=== PATIENT | male | born 1965 | race African-American/Black ===

== ENCOUNTER 2018-01-22 17:51 | Emergency (ER) | payer MEDICARE, MEDICAID ==
[~2018-01-22] VITALS: Ht 188 cm; Wt 95.0 kg
[~2018-01-22 17:51] MED LIST: AMLO10TA4 PO; AMLO2.5T2 PO; ARIP10TA15 PO; CHLO25TA2 PO; DIPH-915 PO; KEN0.1O TP; LISI40TA4 PO; PRAZ1CAP5 PO; PRAZ5CAP2 PO
[2018-01-22 18:44] LABS: BASOPHILS % (AUTO) 0.8 % (0-1); EOSINOPHILS # (AUTO) 0.1 X10'3 (0-0.9); EOSINOPHILS % (AUTO) 1.6 % (0-6); HEMATOCRIT 46.2 % (42.0-52.0); HEMOGLOBIN 15.3 g/dl (14.0-17.9); LYMPHOCYTES # (AUTO) 1.4 X10'3 (1.1-4.8); LYMPHOCYTES % (AUTO) 38.3 % (21-51); MEAN CORPUSCULAR HEMOGLOBIN 29.8 PG (27.0-31.0); MEAN CORPUSCULAR HGB CONC 33.2 % (33.0-36.5); MEAN CORPUSCULAR VOLUME 89.8 FL (78-98); MEAN PLATELET VOLUME 8.1 FL (7.4-10.4); MONOCYTES # (AUTO) 0.3 X10'3 (0-0.9); MONOCYTES % (AUTO) 7.5 % (2-12); NEUTROPHILS # (AUTO) 1.7 X10'3 (1.8-7.7); NEUTROPHILS % (AUTO) 51.8 % (42-75); PLATELET COUNT 287 X10'3 (140-440); RED BLOOD COUNT 5.14 X10'6 (4.70-6.10); RED CELL DISTRIBUTION WIDTH 13.3 % (11.5-14.5); WHITE BLOOD COUNT 3.5 X10'3 (4.5-11.0)
[2018-01-22 18:50] LABS: PARTIAL THROMBOPLASTIN TIME 27 SECONDS (22-32); PROTHROMBIN TIME 10.7 SECONDS (9.0-12.0)
[2018-01-22 18:51] LABS: ALANINE AMINOTRANSFERASE 28 U/L (12-78); ALBUMIN 3.9 G/DL (3.4-5.0); ALBUMIN/GLOBULIN RATIO 1.1 (1.1-1.5); ALKALINE PHOSPHATASE 51 IU/L (46-116); ANION GAP 6 (8-16); ASPARTATE AMINO TRANSFERASE 17 U/L (10-37); BILIRUBIN,TOTAL 0.5 MG/DL (0.1-1.0); BLOOD UREA NITROGEN 13 MG/DL (7-18); BUN/CREATININE RATIO 7.9 (5.4-32.0); CALCIUM 8.9 MG/DL (8.5-10.1); CHLORIDE 101 MMOL/L (99-107); CREATININE 1.64 MG/DL (0.60-1.10); GLUCOSE 117 MG/DL (70-104); POTASSIUM 3.3 MMOL/L (3.5-5.1); SODIUM 140 MMOL/L (135-145); TOTAL CARBON DIOXIDE 32.8 MMOL/L (24-32); TOTAL PROTEIN 7.5 G/DL (6.4-8.2); eGFR 54 ML/MIN
[2018-01-22] MEDS ORDERED: magnesium oxide 400mg tablet PO ONE (19:25)
[2018-01-22] MEDS ORDERED: acetaminophen 325mg tablet PO ONE (19:25)
[2018-01-22] MEDS ORDERED: potassium Cl 20 mEq SR tablet PO ONE (19:25)
[2018-01-22] MEDS ORDERED: normal saline 1000ML IV soln IVB ONE (19:25)
[2018-01-22 19:36] LABS: MAGNESIUM 2.2 MG/DL (1.5-2.4)
[2018-01-22 21:09] VITALS: BP 120/72
[2018-01-23] MEDS ORDERED: LEVO500T89 PO (09:35)
[2018-01-23] MEDS ORDERED: ALBU6.7H INH (09:35)
== END 2018-01-22 21:16 | disposition home or self-care (01) ==
LOC: ER 17:51
DX: R07.89 Other chest pain (principal); I10 Essential (primary) hypertension; Z79.899 Other long term (current) drug therapy
CPT/HCPCS: 36415; 71045; 80053; 83735; 84484; 85025; 85610; 85730; 93005; 99285

== ENCOUNTER 2018-01-23 09:18 | Emergency (ER) | payer MEDICARE, MEDICAID ==
[~2018-01-23] VITALS: Ht 188 cm; Wt 95.5 kg
[2018-01-23 09:27] VITALS: BP 129/81
[2018-01-23] MEDS ORDERED: LEVO500T89 PO (09:35)
[2018-01-23] MEDS ORDERED: ALBU6.7H INH (09:35)
== END 2018-01-23 09:41 | disposition home or self-care (01) ==
LOC: ER 09:19
DX: J18.1 Lobar pneumonia, unspecified organism (principal); I10 Essential (primary) hypertension
CPT/HCPCS: 99283

== ENCOUNTER 2018-07-24 16:00 | Inpatient (IN) | payer MEDICARE, MEDICAID | END 2018-07-29 12:10 | disposition still patient (30) | LOC: ADULT MH 16:00 | DX: F32.3 Major depressive disorder, single episode, severe with psychotic features (principal); I10 Essential (primary) hypertension ==

== ENCOUNTER 2021-07-01 18:11 | Emergency (ER) | payer MEDICARE, MEDICAID ==
[~2021-07-01] VITALS: Ht 182.9 cm; Wt 81.8 kg
[~2021-07-01 18:11] MED LIST changes: -AMLO2.5T2 PO; -ARIP10TA15 PO; +ARIP15TA3 PO; +ARIP5TAB14 PO; -DIPH-915 PO; -KEN0.1O TP; +LISI40TA13 PO; -LISI40TA4 PO; -PRAZ1CAP5 PO; -PRAZ5CAP2 PO; +TRAZ-251 PO
[2021-07-01] MEDS ORDERED: TETanus/Pertussis (Acell)/Diphther VAC/PF (Tdap-Adult) 0.5ml syringe IMVAC ONE (18:45)
[2021-07-01] MEDS ORDERED: rabies vaccine (PCEC)/PF 2.5 unit kit IMVAC ONE (18:45)
[2021-07-01] MEDS ORDERED: rabies immune globulin/PF 150 unit/ml inj IMVAC ONE (18:45)
[2021-07-01] MEDS ORDERED: AMOX-580 PO (19:00)
[2021-07-01] MEDS ORDERED: HYDR-3965 PO ×2 (19:00→19:02)
--- NOTE | 2021-07-01 20:09 | NUR ---
patient states that he as bitten by a dog in the park , both him and the person whose dog it was were both homeless, dog has a unknown vaccination status at this time two puncture wounds noted on the right posterior calf and the, left medial calf patient appears to be developmental delayed at this time ,
--- NOTE | 2021-07-01 20:17 | NUR ---
mirtha called report was made [id number]
--- NOTE | 2021-07-01 20:34 | NUR ---
vaccination fact sheet given to patient
[2021-07-01 20:35] VITALS: BP 132/80
== END 2021-07-01 20:41 | disposition home or self-care (01) ==
LOC: ER 18:11
DX: S81.832A Puncture wound without foreign body, left lower leg, initial encounter (principal); S81.831A Puncture wound without foreign body, right lower leg, initial encounter; I10 Essential (primary) hypertension; Z79.899 Other long term (current) drug therapy; W54.0XXA Bitten by dog, initial encounter; Y93.89 Activity, other specified; Y92.89 Other specified places as the place of occurrence of the external cause; Y99.8 Other external cause status
CPT/HCPCS: 90376; 90471; 90472; 90675; 90715; 96372; 99284

== ENCOUNTER 2021-08-04 08:59 | Emergency (ER) | payer MEDICARE, MEDICAID ==
[~2021-08-04] VITALS: Ht 182.9 cm; Wt 77.3 kg
[2021-08-04 09:11] VITALS: BP 148/106
== END 2021-08-04 11:49 | disposition home or self-care (01) ==
LOC: ER 08:59
DX: M79.604 Pain in right leg (principal); I10 Essential (primary) hypertension; Z59.00 Homelessness unspecified; Z79.899 Other long term (current) drug therapy
CPT/HCPCS: 73502; 93971; 99284

== ENCOUNTER 2023-08-30 23:03 | Emergency (ER) | payer MEDICARE, MEDICAID ==
[~2023-08-30] VITALS: Ht 182.9 cm; Wt 104.5 kg
[~2023-08-30 23:03] MED LIST changes: +ARIP5TAB12 PO; -ARIP5TAB14 PO
[2023-08-30 23:34] VITALS: TEMP 97.9
[2023-08-31 01:17] LABS: BASOPHILS % (AUTO) 0.9 % (0-1); EOSINOPHILS # (AUTO) 0.1 X10'3 (0-0.9); EOSINOPHILS % (AUTO) 2.2 % (0-6); HEMATOCRIT 44.3 % (42.0-52.0); HEMOGLOBIN 14.7 g/dl (14.0-17.9); LYMPHOCYTES # (AUTO) 1.5 X10'3 (1.1-4.8); LYMPHOCYTES % (AUTO) 35.1 % (21-51); MEAN CORPUSCULAR HEMOGLOBIN 29.4 PG (27.0-31.0); MEAN CORPUSCULAR HGB CONC 33.3 g/dL (33.0-36.5); MEAN CORPUSCULAR VOLUME 88.4 FL (78-98); MEAN PLATELET VOLUME 8.1 FL (7.4-10.4); MONOCYTES # (AUTO) 0.3 X10'3 (0-0.9); MONOCYTES % (AUTO) 7.8 % (2-12); NEUTROPHILS # (AUTO) 2.3 X10'3 (1.8-7.7); PLATELET COUNT 248 X10'3 (140-440); RED BLOOD COUNT 5.01 X10'6 (4.70-6.10); RED CELL DISTRIBUTION WIDTH 15.1 % (11.5-14.5); WHITE BLOOD COUNT 4.3 X10'3 (4.5-11.0)
[2023-08-31 01:20] LABS: PROTHROMBIN TIME 10.8 SECONDS (9.0-12.0)
[2023-08-31 01:27] LABS: URINE AMPHETAMINE SCREEN NEGATIVE (Neg); URINE BARBITUATE SCREEN NEGATIVE (Neg); URINE BENZODIAZEPINES SCREEN NEGATIVE (Neg); URINE CANNABINOID SCREEN NEGATIVE (Neg); URINE COCAINE SCREEN NEGATIVE (Neg); URINE METHADONE SCREEN NEGATIVE (Neg); URINE OPIATE SCREEN NEGATIVE (Neg); URINE PHENCYCLIDINE SCREEN NEGATIVE (Neg)
[2023-08-31 01:30] LABS: ALBUMIN 4.1 G/DL (3.4-5.0); ANION GAP 11 (8-16); BLOOD UREA NITROGEN 9 MG/DL (7-18); BUN/CREATININE RATIO 6.4 (10.0-20.0); CHLORIDE 100 MMOL/L (99-107); GLUCOSE 152 MG/DL (70-104); POTASSIUM 3.5 MMOL/L (3.5-5.1); PRO BRAIN NATRIURETIC PEPTIDE < 30 PG/ML (0-125); SODIUM 136 MMOL/L (135-145); TOTAL CARBON DIOXIDE 25.5 MMOL/L (24-32); eCRCL 65 ML/MIN; eGFR 63 ML/MIN
[2023-08-31 02:19] LABS: HEMOGLOBIN A1C 6.2 % (4.5-6.2)
[2023-08-31] MEDS: LORazepam 1 MG tablet PO ONE (03:04)
[2023-08-31] MEDS: normal saline 1000ML IV soln IVB ONE (03:05)
[2023-08-31 04:32] VITALS: BP 159/98; PULSE 89; RESP 16; O2SAT 95
== END 2023-08-31 04:44 | disposition home or self-care (01) ==
LOC: ER 23:03
DX: R07.89 Other chest pain (principal); R68.2 Dry mouth, unspecified; I10 Essential (primary) hypertension; Z88.8 Allergy status to other drugs, medicaments and biological substances; Z79.899 Other long term (current) drug therapy
CPT/HCPCS: 36415; 71045; 80048; 80305; 83036; 83880; 84484; 85025; 85610; 93005; 99285; J7030; 96360; 99284

== ENCOUNTER 2024-06-09 23:02 | Emergency (ER) | payer MEDICARE, MEDICAID ==
[~2024-06-09] VITALS: Ht 182.9 cm; Wt 106.5 kg
[2024-06-09 23:10] VITALS: BP 139/85; PULSE 120; RESP 18; TEMP 98.2; O2SAT 96
[2024-06-10] MEDS ORDERED: ACET-1025 PO (01:01)
[2024-06-10] MEDS: acetaminophen 325mg tablet PO ONE (01:05)
[2024-06-10] MEDS: ibuprofen tablet 400 MG TABLET PO ONE (01:05)
[2024-06-10 01:46] LABS: STREP A SCREEN NEGATIVE (Neg)
== END 2024-06-10 01:13 | disposition home or self-care (01) ==
LOC: ER 23:03
DX: J02.9 Acute pharyngitis, unspecified (principal); I10 Essential (primary) hypertension; Z88.8 Allergy status to other drugs, medicaments and biological substances
CPT/HCPCS: 87081; 87880; 99283

== ENCOUNTER 2025-02-18 17:21 | Emergency (ER) | payer MEDICARE, MEDICAID ==
[~2025-02-18] VITALS: Ht 185.4 cm; Wt 109.7 kg
[~2025-02-18 17:21] MED LIST changes: +AMLO-912 PO; -AMLO10TA4 PO; -LISI40TA13 PO; +LISI40TA20 PO
--- NOTE | 2025-02-18 17:27 | ELECTROCARDIOGRAPH REPORT ---
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 Jasen Posey Measurements Intervals [place] Rate: 81 P: 61 [place]: 168 QRS: 52 QRSD: 99 T: 41 QT: 385 QTc: 447 Interpretive Statements Sinus rhythm Inferior infarct, old Baseline wander in lead(s) II,V2,V3 Electronically Signed On 02-19-2025 18:48:[address] Jasen Posey Please click the below link to view image of tracing.
--- NOTE | 2025-02-18 17:44 | RADIOLOGY REPORT ---
CHEST RADIOGRAPH Indication: CP Technique: Single frontal view of the chest was obtained COMPARISON: DI CHEST,SINGLE VIEW on DOS: 08/31/23 FINDINGS: Lines and Tubes: None Lungs: Low lung volumes. Increased interstitial prominence. This may represent pulmonary vascular congestion and/or viral pneumonia. Pleura: No effusion.No pneumothorax. Cardiomediastinal contours: Cardiomegaly. Bones: Unremarkable IMPRESSION: Cardiomegaly. Low lung volumes. Increased interstitial prominence. This may represent pulmonary vascular congestion and/or viral pneumonia.
[2025-02-18 17:54] LABS: MEAN PLATELET VOLUME 8.1 FL (7.4-10.4); RED CELL DISTRIBUTION WIDTH 14.6 % (11.5-14.5)
[2025-02-18 18:18] LABS: CREATININE 1.46 MG/DL (0.60-1.10); PRO BRAIN NATRIURETIC PEPTIDE < 30 PG/ML (0-125); TOTAL CARBON DIOXIDE 31.1 MMOL/L (24-32); eCRCL 63 ML/MIN; eGFR 60 ML/MIN
[2025-02-18 20:59] VITALS: BP 116/91; PULSE 87; RESP 16; TEMP 98.7; O2SAT 97
--- NOTE | 2025-02-18 21:18 | Physician Documentation ---
History of Present Illness ~ Chief Complaint: Chest Pain Stated Complaint: CHEST PAIN Time Seen by MD: 21:07 [facility] Mode of Arrival: POV HPI Patient presents to the emergency room with intermittent left-sided chest pain. No relieving or exacerbating factors. That has not walking or deep inspirations or palpations. Endorses some degree of shortness of breath intermittently. That has denies one-sided leg pain or swelling. No current pain Medication Reconciliation Allergies: Coded Allergies: benztropine (Verified Allergy, Unknown, 08/30/23) Scheduled Amlodipine Besylate (Norvasc), 1 TAB PO DAILY Aripiprazole* (Abilify*), 5 MG PO DAILY, (Reported) Aripiprazole* (Abilify*), 1 TAB PO HS, (Reported) Chlorthalidone (Chlorthalidone), 0.5 TAB PO DAILY, (Reported) Lisinopril* (Lisinopril*), 1 TAB PO DAILY, (Reported) Trazodone HCl (Trazodone HCl), 1 TAB PO HS, (Reported) Past Medical History Past Medical History: Hypertension, *PSYCH* Past Surgical History: noncontributory Drug Use: none Lives In: Homeless Occupation: disabled Review of Systems ROS All review of systems negative except as per HPI Physical Exam Vital Signs: Temperature: 98.7, Source: Oral, Heart Rate: 87, Respiratory Rate: 16, BP: 116/91, Pulse Oximetry: 97, Weight: 109.700 Oxygen Flow Rate: 0 Physical Exam General: Patient is awake, alert, oriented in no acute distress Head: Normocephalic and atraumatic. Eyes: Conjunctival normal. EOMI. PERRL. ENT: Mucous membranes moist. Neck: Supple, trachea is midline. Chest: Clear to auscultation bilaterally without rales, rhonchi, or wheezes. There is no accessory muscle use or retractions. Cardiac: RRR without murmurs, gallops, or rubs. Abd: Soft, nondistended, nontender, with normoactive bowel sounds. No guarding, rebound, or rigidity. Extremities: Normal strength. Normal range of motion. No deformities or edema. No calf tenderness to palpation Progress Results/Orders Results/Orders Vital Signs 02/18/25 02/18/25 02/18/25 02/18/25 17:30 20:17 20:17 20:59 Temp 98.7 98.7 98.7 Pulse 85 85 87 Resp 16 16 16 B/P (MAP) 169/99 155/112 (126) 116/91 (99) Pulse Ox 96 96 97 O2 Flow Rate 0 0 0 Laboratory Tests Test 02/18/25 17:45 02/18/25 20:44 White Blood Count 3.3 L Red Blood Count 5.20 Hemoglobin 15.6 Hematocrit 46.5 Mean Corpuscular Volume 89.4 Mean Corpuscular Hemoglobin 30.0 Mean Corpuscular Hemoglobin Concent 33.6 Red Cell Distribution Width 14.6 H Platelet Count 263 Mean Platelet Volume 8.1 Neutrophils (%) (Auto) 40.2 L Lymphocytes (%) (Auto) 47.1 Monocytes (%) (Auto) 7.9 Eosinophils (%) (Auto) 3.7 Basophils (%) (Auto) 1.1 H Neutrophils # (Auto) 1.3 L Lymphocytes # (Auto) 1.5 Monocytes # (Auto) 0.3 Eosinophils # (Auto) 0.1 Basophils # (Auto) 0.0 CBC Comment Sodium Level 140 Potassium Level 3.4 L Chloride Level 105 Carbon Dioxide Level 31.1 Anion Gap 4 L Blood Urea Nitrogen 7 Creatinine 1.46 H Estimated GFR/1.73 m2 60 BUN/Creatinine Ratio 4.8 L Glucose Level 103 Calcium Level 8.8 Troponin I High Sensitivity 7 7 Pro-B-Type Natriuretic Peptide < 30 Albumin 4.4 Chemistry Comments Troponin I High Sens Percent Delta 0 Troponin I Hi Sens Absolute Change 0 EKG/XRAY/CT/US/VASC/MRI EKG : Additional Comment EKG interpreted by myself shows time of 1725, rate 81, sinus rhythm, normal axis, no ST changes Chest X-Ray : Additional Comments Exam: CHEST,SINGLE VIEW CHEST RADIOGRAPH Indication: CP Technique: Single frontal view of the chest was obtained COMPARISON: DI CHEST,SINGLE VIEW on DOS: 08/31/23 FINDINGS: Lines and Tubes: None Lungs: Low lung volumes. Increased interstitial prominence. This may represent pulmonary vascular congestion and/or viral pneumonia. Pleura: No effusion.No pneumothorax. Cardiomediastinal contours: Cardiomegaly. Bones: Unremarkable IMPRESSION: Cardiomegaly. Low lung volumes. Increased interstitial prominence. This may represent pulmonary vascular congestion and/or viral pneumonia. Medical Decision Making Additional information obtaine: old records Findings Patient presents to the emergency room with left-sided chest pain as per HPI. Differentials include but are not limited to ACS, aortic pathology, pulmonary embolism, pneumothorax, musculoskeletal pain therefore emergent labs and imaging indicated. Labs and imaging reassuring. Patient's heart score is reassuring. Unknown cause for his pain. No tachycardia, no hypoxia no one sided leg symptoms and he had not feel patient requires investigation into possible pulmonary embolism. Heart Score: 3 Differential Dx:Considerations: Include: angina, aortic dissection, chest wall pain, cholelithiasis, CHF, costochondritis, esophageal reflux/spasm, gastritis, herpes zoster, myocardial infarction, pericarditis, pleuritis, pancreatitis, pneumonia, pneumothorax, pulmonary embolus, other Departure Disposition: 01 HOME / SELF CARE / HOMELESS Impression: Primary Impression: Chest pain Condition: Stable Discharge Instructions: Nonspecific Chest Pain, Adult Additional Instructions: Follow up with your primary care provider for evaluation of chest pain. Referrals: NO PRIMARY CARE PROVIDER (PCP) Signature Scribe Signature: No scribe Attestation: The note accurately reflects work and decisions made by me.Ayo Martinez MD 02/18/25 21:18 AYO MARTINEZ MD Feb 18, 2025 21:18
== END 2025-02-18 21:27 | disposition home or self-care (01) ==
LOC: ER 17:22
DX: R07.9 Chest pain, unspecified (principal); I10 Essential (primary) hypertension; Z88.8 Allergy status to other drugs, medicaments and biological substances; Z79.899 Other long term (current) drug therapy; Z59.00 Homelessness unspecified
CPT/HCPCS: 36415; 71045; 80048; 83880; 84484; 85025; 93005; 99285

== ENCOUNTER 2025-03-15 20:16 | Emergency (ER) | payer MEDICARE, MEDICAID ==
[~2025-03-15] VITALS: Ht 182.9 cm; Wt 109.0 kg
--- NOTE | 2025-03-15 20:22 | ELECTROCARDIOGRAPH REPORT ---
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 Bandar Wetzel Measurements Intervals [place] Rate: 83 P: 57 [place]: 167 QRS: 12 QRSD: 111 T: 36 QT: 392 QTc: 461 Interpretive Statements Sinus rhythm Left ventricular hypertrophy Abnormal T, consider ischemia, anterior leads Electronically Signed On 03-15-2025 21:18:[address] Bandar Wetzel Please click the below link to view image of tracing.
--- NOTE | 2025-03-15 20:51 | RADIOLOGY REPORT ---
CHEST RADIOGRAPH Indication: CP Technique: Single frontal view of the chest was obtained COMPARISON: DI CHEST,SINGLE VIEW on DOS: 02/18/25, DI CHEST,SINGLE VIEW on DOS: 08/31/23 FINDINGS: Lungs and pleural spaces are clear. Cardiac silhouette and hector are within normal limits. Bones and soft tissues demonstrate no significant abnormality. IMPRESSION: No acute disease.
--- NOTE | 2025-03-15 20:57 | Physician Documentation ---
History of Present Illness ~ Chief Complaint: Chest Pain Stated Complaint: CP Time Seen by MD: 20:41 Primary Medical Doctor: DUYEN Mode of Arrival: POV HPI 59-year-old male with a history of being developmentally delayed presents today with a complaint of acute chest pain x2 days accompanying shortness a breath. According to his facility he has recently had an elevation in his blood pressure medication in addition to having concerns over cardiomegaly. Patient is awaiting to see a lens marker's for evaluation of potential congestive heart failure. He has any nausea vomiting or radiating chest pain. States the pain is primarily midsternal Guarding his symptoms he denies any exacerbating or alleviating factors however based on the patient's cognitive deficits it is difficult to get an accurate history Day of Onset: Mar 15, 2025 Medication Reconciliation Allergies: Coded Allergies: benztropine (Verified Allergy, Unknown, 03/15/25) Scheduled Amlodipine Besylate (Norvasc), 1 TAB PO DAILY Aripiprazole* (Abilify*), 5 MG PO DAILY, (Reported) Aripiprazole* (Abilify*), 1 TAB PO HS, (Reported) Chlorthalidone (Chlorthalidone), 0.5 TAB PO DAILY, (Reported) Lisinopril* (Lisinopril*), 1 TAB PO DAILY, (Reported) Trazodone HCl (Trazodone HCl), 1 TAB PO HS, (Reported) Past Medical History Past Medical History: Hypertension, *PSYCH* Past Surgical History: noncontributory Drug Use: none Lives In: Homeless Occupation: disabled Review of Systems All Other Systems at this time: Reviewed and Negative ROS As stated above in the HPI, otherwise all systems are reviewed and negative. Physical Exam Vital Signs: Temperature: 97.1, Source: Temporal, Heart Rate: 79, Respiratory Rate: 31, BP: 169/98, Pulse Oximetry: 96, Weight: 109.000 Oxygen Flow Rate: 0 Physical Exam General: Alert, no apparent distress. Respiratory: Lungs clear, no respiratory distress. Chest: No accessory muscle use. Cardiovascular: Regular rate and rhythm, no murmurs. Gastrointestinal: Soft, nontender, nondistended. Bowels sounds present. Extremities: Normal range of motion, no deformity. Neurologic: Oriented x4. Psychiatric: Normal mood and affect. Skin: Normal color, warm and dry. No edema, no ecchymosis. Progress Results/Orders Results/Orders Completed Orders - JEFF BRITO HIDES INSPECTOR Cbc/Diff (03/15/25 20:57) Ibuprofen Tablet (Motrin Tablet) (03/15/25 21:25) Lorazepam Tablet (Ativan Tablet) (03/15/25 21:35) Medications Received in ER Medications (Trade) Dose Ordered Sig/Arcenio Route PRN Reason Start Time Stop Time Status Last Admin Dose Admin (Motrin tablet) 400 mg ONCE ONCE PO 03/15/25 21:25 03/15/25 21:26 DC 03/15/25 21:30 400 MG (Ativan tablet) 1 mg ONCE ONCE PO 03/15/25 21:35 03/15/25 21:36 DC 03/15/25 21:37 1 MG Vital Signs 03/15/25 03/15/25 03/15/25 03/15/25 20:23 20:40 21:30 21:37 Temp 97.1 97.6 Pulse 79 97 Resp 20 31 20 25 B/P (MAP) 169/98 155/95 (115) Pulse Ox 96 98 O2 Flow Rate 0 0 03/15/25 21:46 Temp 97.6 Pulse 89 Resp 11 B/P (MAP) 155/95 Pulse Ox 95 Laboratory Tests Test 03/15/25 20:34 03/15/25 21:15 CBC Comment Sodium Level 142 Potassium Level 3.7 Chloride Level 106 Carbon Dioxide Level 27.6 Anion Gap 8 Blood Urea Nitrogen 14 Creatinine 1.49 H Estimated GFR/1.73 m2 59 BUN/Creatinine Ratio 9.4 L Glucose Level 138 H Calcium Level 8.4 L Troponin I High Sensitivity 8 Pro-B-Type Natriuretic Peptide < 30 Albumin 4.1 Chemistry Comments White Blood Count 3.5 L Red Blood Count 4.88 Hemoglobin 14.9 Hematocrit 43.4 Mean Corpuscular Volume 88.9 Mean Corpuscular Hemoglobin 30.5 Mean Corpuscular Hemoglobin Concent 34.3 Red Cell Distribution Width 14.8 H Platelet Count 230 Mean Platelet Volume 8.4 Neutrophils (%) (Auto) 53.3 Lymphocytes (%) (Auto) 32.9 Monocytes (%) (Auto) 9.4 Eosinophils (%) (Auto) 3.4 Basophils (%) (Auto) 1.0 Neutrophils # (Auto) 1.9 Lymphocytes # (Auto) 1.2 Monocytes # (Auto) 0.3 Eosinophils # (Auto) 0.1 Basophils # (Auto) 0.0 Medical Decision Making Additional information obtaine: old records Findings Based on patient's laboratory values EKG and x-rays I could not appreciate per my interpretation any signs of cardiomegaly an acute cardiac event or any signs of congestive heart failure. For further evaluation in his discussion with the patient it sounds as though he may have developed some anxiety about his day program per the caregiver at bedside. For these reasons I gave the patient some ibuprofen and in his single dose of Ativan. I do not see any reason to pursue any further evaluation or imaging .he meets criteria for outpatient therapy Heart Score: 2 Differential Dx:Considerations: Include: angina, aortic dissection, chest wall pain, cholelithiasis, CHF, costochondritis, esophageal reflux/spasm, gastritis, herpes zoster, myocardial infarction, pericarditis, pleuritis, pancreatitis, pneumonia, pneumothorax, pulmonary embolus, other Departure Disposition: 01 HOME / SELF CARE / HOMELESS Impression: Primary Impression: Chest pain at rest Additional Impression: Anxiety Condition: Improved Discharge Instructions: Managing Anxiety, Adult, Nonspecific Chest Pain, Adult Referrals: NO PRIMARY CARE PROVIDER (PCP) Signature Scribe Signature: k Attestation: Scribed for Jeff Brito Grade Recorder by Jeff [place] NP . 03/15/25 23:20 JEFF BRITO NP Mar 15, 2025 20:57
[2025-03-15 21:13] LABS: CREATININE 1.49 MG/DL (0.60-1.10); PRO BRAIN NATRIURETIC PEPTIDE < 30 PG/ML (0-125); TOTAL CARBON DIOXIDE 27.6 MMOL/L (24-32); eCRCL 60 ML/MIN; eGFR 59 ML/MIN
[2025-03-15 21:24] LABS: MEAN PLATELET VOLUME 8.4 FL (7.4-10.4); RED CELL DISTRIBUTION WIDTH 14.8 % (11.5-14.5)
[2025-03-15] MEDS: ibuprofen tablet 400 MG TABLET PO ONE (21:30)
[2025-03-15 21:46] VITALS: BP 155/95; PULSE 89; RESP 11; TEMP 97.6; O2SAT 95
== END 2025-03-15 21:50 | disposition home or self-care (01) ==
LOC: ER 20:16
DX: R07.9 Chest pain, unspecified (principal); F41.9 Anxiety disorder, unspecified; R06.02 Shortness of breath; I10 Essential (primary) hypertension; Z88.8 Allergy status to other drugs, medicaments and biological substances
CPT/HCPCS: 36415; 71045; 80048; 83880; 84484; 85025; 93005; 99285